=== PATIENT | male | born 1955 | race Asian ===

== ENCOUNTER 2021-12-10 06:34 | Day surgery (SDC) | payer OTHER ==
[~2021-12-10] VITALS: Ht 160 cm; Wt 50.0 kg
[~2021-12-10 06:34] MED LIST: SODIUM CHLORIDE 0.9% 1,000 ML IV ONE
[2021-12-10] MEDS ORDERED: LIDOCAINE 2% 11 ML JELLY TP ONE (06:35)
[2021-12-10] MEDS ORDERED: BENZOCAINE 20% 50 MCG/SPRAY 57 GM TP ONE (06:35)
[2021-12-10] MEDS ORDERED: ALBUTEROL SULFATE 2.5 MG/0.5 ML NEB SOLUTION NEB ONE (06:35)
[2021-12-10] MEDS ORDERED: LIDOCAINE/PF 2% 5 ML VIAL CAUDAL ONE (06:35)
[2021-12-10] MEDS ORDERED: LIDOCAINE 4% 50 ML SOLUTION TP ONE (06:35)
[2021-12-10] MEDS ORDERED: DEXAMETHASONE SOD PHOS 4 MG/ML VIAL IVP ONE (06:35)
[2021-12-10] MEDS ORDERED: PROPOFOL 1% 20 ML VIAL IVP ONE (06:35)
[2021-12-10] MEDS ORDERED: 0.9% SODIUM CHLORIDE 10 ML VIAL IRRIG ONE (06:35)
[2021-12-10] MEDS ORDERED: ROCURONIUM BROMIDE 10 MG/ML 5 ML VIAL IV ONE (06:35)
[2021-12-10] MEDS ORDERED: SODIUM CHLORIDE 0.9% 1,000 ML ONE (06:38)
[2021-12-10 06:46] LABS: COVID AG,FIA SOURCE NASAL SWAB
[2021-12-10] MEDS ORDERED: FentaNYL CITRATE PF 100 MCG/2 ML VIAL ONE (07:36)
[2021-12-10] MEDS ORDERED: MIDAZOLAM HCL 5 MG/ML VIAL ONE (07:37)
[2021-12-10] MEDS ORDERED: MethylPREDNISolone SOD SUCC 125 MG/2 ML VIAL ONE (09:50)
[2021-12-10] MEDS ORDERED: MethylPREDNISolone SOD SUCC 125 MG/2 ML VIAL IVP ONE (10:15)
== END 2021-12-10 11:55 | disposition home or self-care (01) ==
LOC: SURGERY 06:34
PROVIDERS: ATTEND Internal Medicine Critical Care Medicine
DX: J38.4 Edema of larynx (principal); B37.0 Candidal stomatitis; K74.60 Unspecified cirrhosis of liver; J44.9 Chronic obstructive pulmonary disease, unspecified; Z98.49 Cataract extraction status, unspecified eye; Z87.891 Personal history of nicotine dependence; Z91.013 Allergy to seafood
CPT/HCPCS: 31623; 87101; 87220; 87070; 88108; 88305; 31624; 94640; 71045; 87015; 87426; 87206; J2704; J1100; J3010; J3490 ×2; J2930; J2250; Q9967; J7030; C9803; J7613; Z7610